=== PATIENT | female | born 1930 | race Caucasian/White ===

== ENCOUNTER 2019-04-17 16:52 | Emergency (ER) | payer OTHER ==
[~2019-04-17] VITALS: Ht 157.4 cm; Wt 68.0 kg
[2019-04-17 16:56] VITALS: BP 139/110
--- NOTE | 2019-04-17 19:10 | NUR ---
Incentive spirometer instructed. Patient performed independently with good effort reaching 1500cc of volume x10 breaths.
== END 2019-04-17 19:50 | disposition home or self-care (01) ==
LOC: ED 16:52
DX: S22.32XA Fracture of one rib, left side, initial encounter for closed fracture (principal); S81.811A Laceration without foreign body, right lower leg, initial encounter; S89.91XA Unspecified injury of right lower leg, initial encounter; R10.12 Left upper quadrant pain; Z91.048 Other nonmedicinal substance allergy status; Z90.49 Acquired absence of other specified parts of digestive tract; V89.2XXA Person injured in unspecified motor-vehicle accident, traffic, initial encounter; Y93.I9 Activity, other involving external motion; Y92.488 Other paved roadways as the place of occurrence of the external cause; Y99.8 Other external cause status

== ENCOUNTER 2019-04-20 11:47 | Inpatient (IN) | payer OTHER ==
[~2019-04-20] VITALS: Ht 157.5 cm; Wt 72.7 kg
--- NOTE | ~2019-04-20 | EKG ---
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
--- NOTE | ~2019-04-20 | EKG ---
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
--- NOTE | ~2019-04-20 | EKG ---
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
[2019-04-20 12:03] VITALS: BP 100/62
[2019-04-20 12:10] LABS: BASO # 0.1 10*3/uL (0.0-0.1); BASO % 0.9 % (0.0-1.0); EOS # 0.3 10*3/uL (0.0-0.4); HEMATOCRIT 36.4 % (37.0-47.0); HEMOGLOBIN 11.3 g/dl (12.0-16.0); LYMPH % 9.4 % (27.0-41.0); MEAN CELL VOLUME 95.5 fl (81.0-99.0); MEAN CORPUSCULAR HGB 29.7 pg (27.0-31.0); MEAN PLATELET VOLUME 10.6 fl (9.6-12.3); MONO % 9.5 % (3.0-9.0); NEUT # 8.3 10*3/uL (2.3-7.9); PLATELET COUNT AUTOMATED 173 10*3/uL (130-400); RED BLOOD COUNT 3.81 10*6/uL (4.10-5.10); RED CELL DISTRI WIDTH 13.9 % (0-14.5); WHITE BLOOD COUNT 10.8 10*3/uL (4.8-10.8)
[2019-04-20 12:15] LABS: ACT PARTIAL THROMBO TIME 22.3 SECONDS (20.0-32.1); INTERNATIONAL NORM RATIO 0.9 (2.0-3.5)
[2019-04-20 12:22] LABS: ALBUMIN 3.4 gm/dl (3.1-4.5); ALKALINE PHOSPHATASE 59 U/L (45-117); BUN 18 mg/dl (7-24); CHLORIDE 108 mmol/L (98-107); POTASSIUM 3.8 mmol/L (3.5-5.1); SGOT/AST 11 IU/L (3-35); SGPT/ALT 14 U/L (12-78); SODIUM 141 mmol/L (136-145); TOTAL PROTEIN 6.1 gm/dL (6.4-8.2)
[2019-04-20 12:25] LABS: TROPONIN I < 0.015 ng/ml (<0.045)
[2019-04-20 13:46] VITALS: BP 98/60
--- NOTE | 2019-04-20 14:09 | NUR ---
RESIDENTS FOR ADMISSION IN PATIENTS ROOM. PT IS READY TO GO UPSATIRS FOR ADMISSION. WAITING ON RESIDENT TO LEAVE.
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
--- NOTE | 2019-04-20 14:48 | NUR ---
AT BEDSIDE INFORMED OF PATIENT TAKES NO HOME MEDS. ALSO INFORMED OG WOUNDS TO RIGHT MEANS, ORDERS IN PLACE PER WISHES, STATES SKIN TEAR.
[2019-04-20 16:00] VITALS: BP 110/73
--- NOTE | 2019-04-20 17:36 | NUR ---
PT REQUESTED AND GIVEN TYLENOL FOR RIGHT SHLDR PAIN. PT RATES PAIN 8/10 WILL MONITOR
[2019-04-20 20:00] VITALS: BP 109/66
[2019-04-21] VITALS: BP 114/54
--- NOTE | 2019-04-21 01:41 | NUR ---
TYLENOL GIVEN PER PATIENT REQUEST FOR RIGHT SIDED SHOULDER PAIN AT 01/19. WILL ASSESS EFFECTIVENESS.
--- NOTE | 2019-04-21 02:30 | NUR ---
TYLENOL EFFECTIVE PER PATIENT.
--- NOTE | 2019-04-21 03:18 | NUR ---
24 HR chart check completed.
--- NOTE | 2019-04-21 05:16 | NUR ---
TYLENOL GIVEN PER PATIENT REQUEST FOR COMPLAINTS OF RIGHT SHOULDER PAIN. WILL ASSESS FOR EFFECTIVENESS.
--- NOTE | 2019-04-21 06:10 | NUR ---
TYLENOL EFFECTIVE PER PATIENT.
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
[2019-04-21 06:57] LABS: BASO % 0.5 % (0.0-1.0); EOS # 0.2 10*3/uL (0.0-0.4); EOS % 3.3 % (1.0-4.0); HEMATOCRIT 28.5 % (37.0-47.0); HEMOGLOBIN 8.9 g/dl (12.0-16.0); LYMPH # 1.1 10*3/uL (1.3-4.4); LYMPH % 17.2 % (27.0-41.0); MEAN CELL VOLUME 95.3 fl (81.0-99.0); MEAN CORPUSCULAR HGB 29.8 pg (27.0-31.0); MEAN CORPUSCULAR HGB CONC 31.2 g/dl (33.0-37.0); MEAN PLATELET VOLUME 10.9 fl (9.6-12.3); MONO # 0.7 10*3/uL (0.1-1.0); MONO % 11.4 % (3.0-9.0); NEUT # 4.3 10*3/uL (2.3-7.9); NEUT % 67.3 % (47.0-73.0); PLATELET COUNT AUTOMATED 141 10*3/uL (130-400); RED BLOOD COUNT 2.99 10*6/uL (4.10-5.10); WHITE BLOOD COUNT 6.4 10*3/uL (4.8-10.8)
[2019-04-21 07:12] LABS: BUN 22 mg/dl (7-24); CHLORIDE 107 mmol/L (98-107); CHOLESTEROL 127 mg/dL (<200); CREATININE 1.02 mg/dL (0.55-1.02); PHOSPHOROUS 3.5 mg/dL (2.5-4.9); POTASSIUM 3.2 mmol/L (3.5-5.1); SODIUM 141 mmol/L (136-145); TRIGLYCERIDES 99 mg/dl (<150); VLDL CHOLESTEROL 20 mg/dL (6-40)
[2019-04-21 07:20] LABS: FREE T4 1.19 ng/dl (0.76-1.46); HDL CHOLESTEROL 49 mg/dl (40-60); LDL CHOLESTEROL 58 mg/dL (9-159)
[2019-04-21 08:00] VITALS: BP 115/58
[2019-04-21 08:25] LABS: VITAMIN D, 25-HYDROXY 26.5 ng/mL (30-100)
--- NOTE | 2019-04-21 08:33 | NUR ---
PT RESTING IN BED. NO DISTRESS NOTED. WILL MONITOR
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
[2019-04-21 12:00] VITALS: BP 124/67
[2019-04-21 16:00] VITALS: BP 117/64
[2019-04-21 20:00] VITALS: BP 121/62
[2019-04-22] VITALS: BP 123/65
[2019-04-22 06:13] LABS: BUN 17 mg/dl (7-24); CHLORIDE 111 mmol/L (98-107); CREATININE 0.71 mg/dL (0.55-1.02); POTASSIUM 3.5 mmol/L (3.5-5.1); SODIUM 142 mmol/L (136-145)
[2019-04-22 08:00] VITALS: BP 133/69
--- NOTE | 2019-04-22 09:00 | NUR ---
case management visits with patient, she states she has been ambulating to the bathroom with wheeled walker per self with steady gait. discussed with her again a discharge plan and she stated she would be returning home. also discussed VNA and she declines any home services at this time, she states she has family living close to her and will help her whenever she needs, case managment will follow for any other needs
[2019-04-22] MEDS ORDERED: VITAMIN D32000 UNI1 PO (09:48)
[2019-04-22] MEDS ORDERED: MUCINEX ER600 MG PO (09:48)
[2019-04-22] MEDS ORDERED: AVPAK AZITHROM250 M1 PO (09:48)
--- NOTE | 2019-04-22 10:17 | NUR ---
PT REQUESTED AND GIVEN 1 TAB TYLENOL FOR C/O RIGHT SHOULDER PAIN PT RATES PAIN 5/10 WILL MONITOR
--- NOTE | 2019-04-22 13:00 | NUR ---
Occupational Therapy referral received. Upon arrival to patient's room for OT evaluation, patient was in a wheelchair and leaving the room for discharge. Salud Morillo OTR/percy
--- NOTE | 2019-04-22 13:23 | NUR ---
PT REFUSED TO HAVE DRESSING REMOVED TO GET DC WOUND PHOTOS
--- NOTE | 2019-04-22 13:33 | NUR ---
Discharge instructions reviewed with patient/family. Patient receptive and verbalizes understanding. Follow-up care arranged. Written instructions given to patient/family. GABRIELLE VELEZ
--- NOTE | 2019-04-22 14:00 | NUR ---
Nutritional Support Servics Note: Skin tear noted to vale. Appetite is good for meals, sheis eating 100%. Ht.5'2 Wt.160#. Continue to encourage 100% po intake of all meals. Discussed adequate protein and calorie intake. No other nutrition intervention needed at this time. Fadia Livingston Rdn Ld
--- NOTE | 2019-04-22 14:41 | NUR ---
PHYSICAL THERAPY Patient discharged prior to PT evaluation this date. Thank you. Maggie Alonso,PT,DPT
== END 2019-04-22 13:45 | disposition home or self-care (01) | DRG 177 ==
LOC: ED 11:47 → EDHOLD 13:39 → 4E 13:39
PROVIDERS: Emergency Medicine; Internal Medicine; ADMIT Family Medicine
DX: J15.6 Pneumonia due to other Gram-negative bacteria (principal); N17.0 Acute kidney failure with tubular necrosis; E44.1 Mild protein-calorie malnutrition; M19.90 Unspecified osteoarthritis, unspecified site; R94.31 Abnormal electrocardiogram [ECG] [EKG]; D64.9 Anemia, unspecified; E87.8 Other disorders of electrolyte and fluid balance, not elsewhere classified; R73.9 Hyperglycemia, unspecified; H91.13 Presbycusis, bilateral; E87.6 Hypokalemia; Z68.29 Body mass index [BMI] 29.0-29.9, adult; Z87.828 Personal history of other (healed) physical injury and trauma; Z87.81 Personal history of (healed) traumatic fracture; Z90.49 Acquired absence of other specified parts of digestive tract; Z79.899 Other long term (current) drug therapy; Z91.048 Other nonmedicinal substance allergy status; Z82.49 Family history of ischemic heart disease and other diseases of the circulatory system

== ENCOUNTER → 2021-07-11 | Outpatient (CLI) | payer MEDICARE ==
[~2021-07-11] MED LIST: AVPAK AZITHROM250 M1 PO; MUCINEX ER600 MG PO; VITAMIN D32000 UNI1 PO
== END | disposition home or self-care (01) ==
LOC: COVID19 15:59
PROVIDERS: ATTEND Internal Medicine
DX: Z11.52 Encounter for screening for COVID-19 (principal)